=== PATIENT | female | born 1995 | race Caucasian/White ===

== ENCOUNTER 2021-05-15 09:51 | Emergency (ER) | payer MEDICAID ==
[~2021-05-15] VITALS: Ht 152.4 cm; Wt 77.0 kg
[2021-05-15] MEDS ORDERED: FLUORESCEIN SODIUM 1MG/STRIP BOTHEYE ONE (10:15)
[2021-05-15] MEDS ORDERED: ACETAMINOPHEN 325MG TABLET PO ONE (10:15)
[2021-05-15] MEDS ORDERED: TETRACAINE 0.5% OPHTH DROPS 4ML BOTHEYE ONE (10:15)
[2021-05-15] MEDS ORDERED: TRIMO EACHEYE (10:44)
[2021-05-15] MEDS ORDERED: BENZ1LOZ60 MT (10:44)
[2021-05-15 10:50] VITALS: BP 113/89
== END 2021-05-15 11:03 | disposition home or self-care (01) ==
LOC: ER 09:51
DX: H10.89 Other conjunctivitis (principal); J02.9 Acute pharyngitis, unspecified
CPT/HCPCS: 99284